=== PATIENT | female | born 1950 | race Asian ===

== ENCOUNTER 2022-01-02 10:59 | Outpatient (CLI) | payer OTHER | END 2022-01-02 19:33 | disposition home or self-care (01) | LOC: RAD 10:59 | PROVIDERS: ATTEND Internal Medicine | DX: M54.59 Other low back pain (principal) ==

== ENCOUNTER 2022-08-05 08:47 | Outpatient (CLI) | payer OTHER ==
[2022-08-05 09:11] LABS: PLATELET COUNT 332 K/uL (152-353)
[2022-08-05 09:15] LABS: POTASSIUM 3.9 mmol/L (3.6-5.2)
== END 2022-08-05 22:05 | disposition home or self-care (01) ==
LOC: LABW 08:47
PROVIDERS: ATTEND Specialist
DX: R00.2 Palpitations (principal); R07.89 Other chest pain; I10 Essential (primary) hypertension
CPT/HCPCS: 36415; 80048; 85027